=== PATIENT | male | born 1980 | race Caucasian/White ===

== ENCOUNTER → 2016-03-20 | Outpatient (CLI) | payer OTHER ==
[2016-03-20 12:11] LABS: HEMATOCRIT 43.2 % (42-52); MEAN CELL VOLUME 87.4 fL (80-100); MEAN CORPUSCULAR HEMOGLOBIN 30.6 pg (25-34); MEAN PLATELET VOLUME 9.7 fL (7.4-10.4); PLATELET COUNT 316 K/uL (130-400); RED BLOOD COUNT 4.94 M/uL (4.7-6.1); WHITE BLOOD COUNT 9.16 K/uL (4.8-10.8)
--- NOTE | 2016-03-20 12:36 | DIAGNOSTIC IMAGING REPORT ---
L-SPINE MIN 4 VIEWS ROUTINE CLINICAL HISTORY: Back pain status post trauma COMPARISON STUDY: No previous studies for comparison. FINDINGS: There is no pathologic bowel dilatation. There are 5 lumbar type vertebral bodies present. No fractures or subluxations are visualized. IMPRESSION: No fractures or subluxations identified. Electronically signed by: Micah Perez M.D. 03/20/2016 12:34 PM Dictated Date/Time: 03/20/2016 12:34 PM
--- NOTE | 2016-03-20 12:49 | DIAGNOSTIC IMAGING REPORT ---
THORACIC SPINE 3 VIEWS ROUTINE CLINICAL HISTORY: Thoracic spine pain status post trauma COMPARISON STUDY: No previous studies for comparison. FINDINGS: The paraspinal line is not displaced. No fractures or subluxations are visualized on conventional radiographic imaging. IMPRESSION: No fractures or subluxations identified. Electronically signed by: Micah Perez M.D. 03/20/2016 12:47 PM Dictated Date/Time: 03/20/2016 12:47 PM
[2016-03-20 15:35] LABS: LYME DISEASE AB IGG NEG (NEG); LYME DISEASE AB IGM NEG (NEG)
== END | disposition home or self-care (01) ==
LOC: C.RAD 11:15
PROVIDERS: ATTEND Family Medicine
DX: M54.5 Low back pain (principal); M79.1 Myalgia; Z91.89 Other specified personal risk factors, not elsewhere classified